=== PATIENT | male | born 1955 | race Asian ===

== ENCOUNTER 2017-01-22 01:26 | Emergency (ER) | payer OTHER ==
[2017-01-22 01:48] VITALS: BP 161/88
== END 2017-01-22 03:45 | disposition home or self-care (01) ==
LOC: ER 01:27
DX: T63.301A Toxic effect of unspecified spider venom, accidental (unintentional), initial encounter (principal); L03.113 Cellulitis of right upper limb; Y92.89 Other specified places as the place of occurrence of the external cause